=== PATIENT | female | born 1945 | race Caucasian/White ===

== ENCOUNTER 2018-12-12 09:05 | Observation (INO) | payer MEDICARE, BC ==
[~2018-12-12 09:05] MED LIST: Buffered Lidocaine 1% SYRIN* 1 ML/SYRINGE INTRADERM ONE; Lactated Ringers 1000 ML Bag* 1,000 ML IV SCH
[2018-12-12] MEDS ORDERED: Lidocaine 2% PF * 5 ML VIAL ONE ×2 (10:56→13:49)
[2018-12-12] MEDS ORDERED: Propofol* 10 MG/ML 20 ML BTL ONE (10:56)
[2018-12-12] MEDS ORDERED: Midazolam* 1 MG/ML 2 ML VIAL (2 MG) ONE (11:04)
[2018-12-12] MEDS ORDERED: fentaNYL* 50 MCG/ML 2 ML VIAL (100 MCG VIAL) ONE (11:05)
[2018-12-12] MEDS ORDERED: Clindamycin 900 MG/D5W BAG(*) 900 MG/50 ML BAG IVPB ONE (11:31)
[2018-12-12] MEDS ORDERED: Buffered Lidocaine 1% SYRIN* 1 ML/SYRINGE INTRADERM ONE (11:31)
[2018-12-12] MEDS ORDERED: Lidocain 1% EPI 1:100,000 * 30 ML MDV ONE (12:17)
[2018-12-12] MEDS ORDERED: Thrombin 5,000 UNITS* 1 APPLIC KIT - topical use - TOPICAL ONE (12:18)
[2018-12-12] MEDS ORDERED: Bacitracin IV* 50,000 UNITS INJ ONE (12:18)
[2018-12-12] MEDS ORDERED: Levalbuterol 0.63MG/3ML NEB* UNIT OF USE INH ONE ×2 (12:19)
[2018-12-12] MEDS ORDERED: Rocuronium* 10 MG/ML VIAL ONE (12:21)
[2018-12-12] MEDS ORDERED: KETAMINE HCL* 50 MG/ML 10 ML VIAL ONE (12:58)
[2018-12-12] MEDS ORDERED: Ketorolac INJ* 30 MG/ML 1 ML VIAL ONE (13:09)
[2018-12-12] MEDS ORDERED: Dexamethasone IV* 4 MG/ML 1 ML (4 MG) ONE (13:09)
[2018-12-12] MEDS ORDERED: Ondansetron INJ* 2 MG/ML VIAL ONE (13:09)
[2018-12-12] MEDS ORDERED: Metoclopramide IV* 5 MG/ML 2 ML VIAL ONE (13:09)
[2018-12-12] MEDS ORDERED: Phenylephrine INJ* 10 MG/ML 1 ML VIAL (10 MG) ONE (13:24)
[2018-12-12] MEDS ORDERED: Acetaminophen IV 1GM/100ML * 1,000 MG/100 ML VIAL IVPB ONE (13:32)
[2018-12-12] MEDS ORDERED: Naloxone* 0.4 MG/ML 1 ML VIAL IV PRN (13:32)
[2018-12-12] MEDS ORDERED: DiMENhydriNATE IV* 50 MG/ML VIAL IV PUSH PRN (13:32)
[2018-12-12] MEDS ORDERED: Sugammadex * 200 MG/2 ML VIAL IV PUSH ONE (13:49)
[2018-12-12] MEDS ORDERED: HYDROmorphone INJ1* 1 MG/ML SYRINGE ONE ×2 (13:57→14:42)
[2018-12-12] MEDS ORDERED: Lactated Ringers 1000 ML Bag* 1,000 ML IV SCH (14:00)
[2018-12-12] MEDS ORDERED: Ondansetron INJ* 2 MG/ML VIAL IV PRN (14:00)
[2018-12-12] MEDS ORDERED: Acetaminophen TAB* 325 MG PO PRN (14:00)
[2018-12-12] MEDS ORDERED: Magnesium Hydroxide LIQ* 30 ML UDC PO PRN (14:00)
[2018-12-12] MEDS ORDERED: Albuterol HFA INHALER* 8 gm MDI INH PRN (14:08)
[2018-12-12] MEDS: HYDROmorphone INJ1* 1 MG/ML SYRINGE IV PRN ×5 (14:43→15:32)
[2018-12-12] MEDS ORDERED: Gabapentin CAP(*) 300 MG PO ONE (15:27)
[2018-12-12] MEDS ORDERED: Gabapentin CAP(*) 300 MG ONE (15:28)
[2018-12-12] MEDS: Cyclobenzaprine TAB* 10 MG PO SCH ×2 (16:59→19:25)
[2018-12-12] MEDS: oxyCODONE TAB* 5 MG TAB PO PRN ×2 (17:44→21:50)
[2018-12-13] MEDS: oxyCODONE TAB* 5 MG TAB PO PRN ×2 (01:54→08:33)
[2018-12-13] MEDS ORDERED: Cyclobenzaprine TAB* 10 MG PO SCH (03:30)
--- NOTE | 2018-12-13 07:46 | PN ---
Progress Note - Progress Note Date of Service: 12/13/18 SOAP: Subjective: [S/p posterior cervical discectomy C7-T1 right Pre-op RUE pain improved, tingling persistent Denies headache, nausea Eating and drinking well Ambulating independently. Pain well controlled with PO meds] Objective: [ Vital Signs: Temp Pulse Resp BP Pulse Ox 97.8 F 85 16 141/64 96 12/13/18 04:16 12/13/18 04:16 12/13/18 06:31 12/13/18 04:16 12/13/18 04:16 General: Sitting up in bed comfortably Neuro: Motor and sensory intact Incision: Intact, no swelling, drain dc today Wound drain output 12/12/18 12/12/18 12/13/18 18:37 22:18 01:59 Output, EUGENIO #1 10 10 10 12/13/18 05:40 Output, EUGENIO #1 10 ] Assessment: [Satisfactory post-op] Plan: [1. Discharge home today 2. Discharge medications and instructions discussed]
[2018-12-13 08:42] VITALS: BP 151/77
[2018-12-13] MEDS ORDERED: Fluticasone/Vilanterol MDI(NF) 200/25 MDI INH SCH (09:00)
[2018-12-13] MEDS ORDERED: Hydrochlorothiazide TAB* 25 MG PO SCH (09:00)
[2018-12-13] MEDS ORDERED: CMCS:Irbesartan (NF) 150 MG TAB PO SCH (09:00)
--- NOTE | 2018-12-13 12:52 | OP ---
DATE OF OPERATION: 12/12/18 - ROOM #340 DATE OF : 47 PRIMARY SURGEON: Modesto Reid MD. QUANTITATIVE ANALYST DEVELOPER: HIREN Clinton ANESTHESIA: General. PRE-OP DIAGNOSIS: Herniated nucleus pulposus, C7-T1 on the right. POST-OP DIAGNOSIS: Herniated nucleus pulposus, C7-T1 on the right. OPERATIVE PROCEDURE: Posterior cervical diskectomy C7-T1 on the right with microdissection. DESCRIPTION OF PROCEDURE: After satisfactory general anesthesia was obtained, the patient was placed on the operating table in the prone position with the chest supported on chest rolls and the head maintained in position with the Flores headrest with slight neck flexion. The posterior aspect of the neck was clipped, prepped and draped in a sterile manner for a posterior cervical laminectomy and a skin incision outlined from C6 to T1. This incision was infiltrated with 1% Xylocaine with epinephrine, after which it was turned down sharply to the level of the cervical fascia. The fascia was divided along the spinous processes from C6 to T1 and the paraspinal musculature stripped away on the right side utilizing periosteal elevator and monopolar cautery. An x-ray was obtained verifying localization of the C6 spinous process after which a partial hemilaminectomy was carried out at C7-T1 on the right side by removing the inferior aspect of the C7 lamina, superior aspect of the T1 lamina, and medial aspect of the facet complex. This was done utilizing a combination of the Midas Uli drill and Kerrison rongeurs. Ligamentum flavum was removed with the Kerrison. At this point of the procedure, the operating microscope was brought into the field and the remainder of the procedure was done under microscopic visualization. Utilizing microdissection, epidural venous structures were coagulated and divided. A generous foraminotomy was carried out over the C8 nerve root. Projecting into the axillary region of the nerve root, exposure was noted to be freely extruded disk material. Multiple fragments of disk were delivered from beneath the nerve root and extending out into the neuro foramen. The shoulder region of the nerve was palpated and was felt to be free of compromise. After assuring adequate hemostasis, the wound was thoroughly irrigated. A piece of Gelfoam was placed over the laminectomy defect. A drain was placed in the epidural space and tunneled out towards the right side. The fascia was then reapproximated with 0 Vicryl suture. The subcutaneous tissues were closed with 3-0 Vicryl suture and the skin closed with skin clips. The estimated blood loss was less than 50 cc and the final sponge, padding, and needle counts were correct. The patient was taken to the recovery room, extubated, and in stable condition. [id number] #: [id number] MTDD
== END 2018-12-13 10:02 | disposition home or self-care (01) ==
LOC: OR 09:05 → SSU 14:00
PROVIDERS: ADMIT Neurological Surgery; ATTEND Neurological Surgery
DX: M50.23 Other cervical disc displacement, cervicothoracic region (principal); Z88.0 Allergy status to penicillin; M54.2 Cervicalgia
CPT/HCPCS: 72020; 96374; 96375; A9270-GY; G0378; J1100; J1170; J1885; J2250; J2405; J2704; J2765; J3010

== ENCOUNTER 2024-12-24 05:46 | Observation (INO) ==
[~2024-12-24 05:46] MED LIST changes: -Buffered Lidocaine 1% SYRIN* 1 ML/SYRINGE INTRADERM ONE; +Chlorhexidine MOUTHWASH 0.12% 15 ML UDC ONE; -Lactated Ringers 1000 ML Bag* 1,000 ML IV SCH; +NS 0.45% 1000 ml BAG 1,000 ML IV SCH; +Naloxone 0.4 mg VIAL 0.4 mg/ml 1 ml VIAL IV PRN; +Ondansetron 4 mg VIAL 2 MG/ML 2 ml VIAL IV PRN
[2024-12-24] MEDS ORDERED: Lidocaine 1% w EPI 1:100,000 MDV 50 ML VIAL ONE (05:59)
[2024-12-24] MEDS ORDERED: ceFAZolin VIAL VIAL ONE (05:59)
[2024-12-24] MEDS: Buffered Lidocaine 1% SYRIN 1 ml INTRADERM ONE (06:14)
[2024-12-24] MEDS ORDERED: ceFAZolin 2 GM PREMIX 2 GM/50 ML BAG ONE (06:18)
[2024-12-24] MEDS: Lactated Ringers 1000 ml BAG 1,000 ML IV SCH ×2 (06:23→12:39)
[2024-12-24 06:35] LABS: Rapid COVID-19 Molecular Undetected (Undetected)
[2024-12-24] MEDS ORDERED: Propofol 10 MG/ML 20 ML BTL ONE (07:12)
[2024-12-24] MEDS ORDERED: Rocuronium 50 mg VIAL 10 mg/ml 5 ml VIAL (50 mg) ONE (07:12)
[2024-12-24] MEDS ORDERED: Lidocaine 2% PF 5 ML VIAL ONE (07:12)
[2024-12-24] MEDS ORDERED: Midazolam 2 mg/2 ml VIAL 1 mg/ml 2 ml VIAL (2 mg) ONE (07:12)
[2024-12-24] MEDS ORDERED: fentaNYL 100 mcg/2 ml 50 MCG/ML VIAL ONE ×4 (07:12→10:37)
[2024-12-24] MEDS ORDERED: Dexamethasone IV 4 MG/ML VIAL 1 ml VIAL ONE (07:50)
[2024-12-24] MEDS ORDERED: Ondansetron 4 mg VIAL 2 MG/ML 2 ml VIAL ONE (07:50)
[2024-12-24] MEDS ORDERED: Glycopyrrolate IV 0.2 MG/ML 1 ML VIAL ONE (08:20)
[2024-12-24] MEDS ORDERED: Phenylephrine IV 10 MG/ML 1 ml VIAL ONE (08:30)
[2024-12-24] MEDS ORDERED: Thrombin 5,000 UNITS 1 APPLIC KIT - topical use - TOPICAL ONE (08:40)
[2024-12-24] MEDS ORDERED: Dextran 70/Hypromellose Tears Eye Drops 15 ml BTL (for Artificials Tears) BOTH EYES PRN (09:41)
[2024-12-24] MEDS ORDERED: Phenol 1.4% Throat Spray BTL MT PRN (09:41)
[2024-12-24] MEDS ORDERED: Calcium Carb (TUMS) 500 mg CHEW TAB PO PRN (09:45)
[2024-12-24] MEDS ORDERED: Ondansetron 4 mg VIAL 2 MG/ML 2 ml VIAL IV PRN (09:45)
[2024-12-24] MEDS ORDERED: Senna TAB 8.6 mg TAB PO PRN (09:45)
[2024-12-24] MEDS ORDERED: Albuterol 2.5mg/3 ml (0.083%) NEB.SOLN INH ONE (09:45)
[2024-12-24] MEDS: Albuterol 2.5mg/3 ml (0.083%) NEB.SOLN INH ONE (09:47)
[2024-12-24] MEDS ORDERED: Albuterol HFA INHALER 8 gm MDI INH PRN (09:47)
[2024-12-24] MEDS: fentaNYL 100 mcg/2 ml 50 MCG/ML VIAL IV PRN (10:07)
[2024-12-24] MEDS: Acetaminophen IV 1 GM/100ML 1,000 MG/100 ML BAG IV ONE (12:47)
[2024-12-24] MEDS: HYDROcodone/ACETAMIN 5/325 mg TAB PO PRN ×2 (12:52→20:40)
[2024-12-24] MEDS ORDERED: Acetaminophen IV 1 GM/100ML 1,000 MG/100 ML BAG IV PRN (17:40)
[2024-12-24] MEDS: Fluticasone NASAL SPRAY 50MCG 16 gm SPRAY BTL INTRANASAL SCH (21:46)
[2024-12-25] MEDS: Aspirin EC 81 mg TAB.EC (enteric coated) PO SCH (08:34)
[2024-12-25] MEDS: Mometasone/Formoter 200/5 MDI INH SCH (08:39)
[2024-12-25] MEDS: Benzocaine/Menthol LOZ MT PRN (20:59)
[2024-12-26 10:30] VITALS: BP 106/68
== END 2024-12-26 12:00 | disposition home or self-care (01) ==
LOC: SSU 05:46 → OR 05:46
PROVIDERS: ADMIT Neurological Surgery; ATTEND Neurological Surgery